=== PATIENT | female | born 1955 | race African-American/Black ===

== ENCOUNTER 2020-03-04 15:06 | Emergency (ER) | payer SELFPAY ==
[2020-03-04] MEDS ORDERED: Sodium Chloride 0.9% 10 ML Syringe FLUSH PRN (15:39)
[2020-03-04] MEDS ORDERED: Sodium Chloride 0.9% 1,000 ML IV SCH (15:45)
--- NOTE | 2020-03-04 17:31 | EDM.PDOC ---
ED HPI GENERAL MEDICAL PROBLEM - General Chief Complaint: General Stated Complaint: WEAK/CHILLS Time Seen by Provider: 03/04/20 15:23 Source of Information: Reports: Patient, Family History Limitations: Reports: Language Barrier - History of Present Illness INITIAL COMMENTS - FREE TEXT/NARRATIVE: The patient presents with her son who is interpreting for her. She presents with chills, generalized weakness, and achiness. This has been going on for about 4 days. She denies a fever or cough. She has no abdominal pain, nausea or vomiting. She has no dysuria. She has been careful staying away from people. She has a history of hepatitis B and she is worried this may be related to that. She does have a headache. She has no chest pain or shortness of breath. Onset: Gradual Duration: Day(s): (4) Location: Reports: Generalized Quality: Reports: Ache Severity: Mild Improves with: Reports: None Worsens with: Reports: None Associated Symptoms: Reports: Fever/Chills, Headaches. Denies: Chest Pain, Cough, Nausea/Vomiting, Shortness of Breath Headache Pain Score (Numeric/FACES): 8 - Related Data Allergies Allergy/AdvReac Type Severity Reaction Status Date / Time No Known Allergies Allergy Verified 03/04/20 15:19 Home Meds: Home Meds . 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: Musculoskeletal History: Reports: None Neurological History: Reports: None Psychiatric History: Reports: None Endocrine/Metabolic History: Reports: None Hematologic History: Reports: None Immunologic History: Reports: None Oncologic (Cancer) History: Reports: None Dermatologic History: Reports: None - Infectious Disease History Infectious Disease History: Reports: Hepatitis B - Past Surgical History Head Surgeries/Procedures: Reports: None GI Surgical History: Reports: None Female Surgical History: Reports: None Social & Family History - Family History Family Medical History: Unobtainable - Tobacco Use Tobacco Use Status *Q: Never Tobacco User - Caffeine Use Caffeine Use: Reports: None - Recreational Drug Use Recreational Drug Use: No ED ROS GENERAL - Review of Systems Review Of Systems: See Below Constitutional: Reports: Chills, Malaise, Weakness, Fatigue. Denies: Fever HEENT: Reports: No Symptoms Respiratory: Reports: No Symptoms Cardiovascular: Reports: No Symptoms Endocrine: Reports: No Symptoms GI/Abdominal: Reports: No Symptoms : Reports: No Symptoms Musculoskeletal: Reports: Muscle Pain ED EXAM, GENERAL - Physical Exam Exam: See Below Exam Limited By: No Limitations General Appearance: Alert, No Apparent Distress Ears: Normal External Exam Nose: Normal Inspection Head: Atraumatic, Normocephalic Neck: Normal Inspection Respiratory/Chest: No Respiratory Distress, Lungs Clear, Normal Breath Sounds Cardiovascular: Regular Rate, Rhythm, No Edema, No Murmur GI/Abdominal: Soft, Non-Tender, No Organomegaly, No Mass Back Exam: Normal Inspection Extremities: Normal Inspection Neurological: Alert, Oriented, No Motor/Sensory Deficits Course - Vital Signs Last Recorded V/S: Last Vital Signs Temp 97.6 F 03/04/20 15:29 Pulse 64 03/04/20 15:29 Resp 18 03/04/20 15:29 BP 167/90 H 03/04/20 15:29 Pulse Ox 100 03/04/20 15:29 - Orders/Labs/Meds Orders: Active Orders 24 hr Category Date Time Status Cardiac Monitoring [RC] . DIRECTED Care 03/04/20 15:39 Active Peripheral IV Care [RC] . DIRECTED Care 03/04/20 15:40 Active Chest 1V Frontal [CR] Stat Exams 03/04/20 15:40 Taken CORONAVIRUS COVID-19 PCR PHL Stat Lab 03/04/20 16:00 Received Sodium Chloride 0.9% [Normal Saline] 1,000 ml Med 03/04/20 15:45 Active IV .BOLUS Sodium Chloride 0.9% [Saline Flush] Med 03/04/20 15:39 Active 10 ml FLUSH ASDIRECTED PRN Peripheral IV Insertion Adult [OM.PC] Stat Oth 03/04/20 15:39 Ordered Medication Orders Sodium Chloride (Normal Saline) 1,000 mls @ 1,000 mls/hr IV .BOLUS AMINTA Last Admin: 03/04/20 16:01 Dose: 1,000 mls/hr Documented by: TIERA Sodium Chloride (Saline Flush) 10 ml FLUSH ASDIRECTED PRN PRN Reason: Keep Vein Open Last Admin: 03/04/20 16:02 Dose: 10 ml Documented by: [email or web address] Labs: Laboratory Tests 03/04/20 03/04/20 03/04/20 Range/Units 16:00 16:00 16:45 WBC 4.17 (3.98-10.04) K/mm3 RBC 4.43 (3.98-5.22) M/mm3 Hgb 14.0 (11.2-15.7) gm/dl Hct 42.0 (34.1-44.9) % MCV 94.8 (79.4-94.8) fl MCH 31.6 (25.6-32.2) pg MCHC 33.3 (32.2-35.5) g/dl RDW Std Deviation 43.1 (36.4-46.3) fL Plt Count 148 L (182-369) K/mm3 MPV 11.9 (9.4-12.3) fl Neut % (Auto) 42.8 (34.0-71.1) % Lymph % (Auto) 46.5 (19.3-51.7) % [place] % (Auto) 10.3 (4.7-12.5) % Eos % (Auto) 0.2 L (0.7-5.8) Baso % (Auto) 0.2 (0.1-1.2) % Neut # (Auto) 1.78 (1.56-6.13) K/mm3 Lymph # (Auto) 1.94 (1.18-3.74) K/mm3 [place] # (Auto) 0.43 H (0.24-0.36) K/mm3 Eos # (Auto) 0.01 L (0.04-0.36) K/mm3 Baso # (Auto) 0.01 (0.01-0.08) K/mm3 Sodium 140 (136-145) mEq/L Potassium 4.0 (3.5-5.1) mEq/L Chloride 101 (98-107) mEq/L Carbon Dioxide 29 (21-32) mEq/L Anion Gap 14.0 (5-15) BUN 9 (7-18) mg/dL Creatinine 0.9 (0.55-1.02) mg/dL Est Cr Clr Drug Dosing 56.82 mL/min Estimated GFR (MDRD) > 60 (>60) mL/min BUN/Creatinine Ratio 10.0 L (14-18) Glucose 94 (80-115) mg/dL Calcium 9.4 (8.5-10.1) mg/dL Total Bilirubin 0.4 (0.2-1.0) mg/dL AST 26 (15-37) U/L ALT 35 (14-59) U/L Alkaline Phosphatase 65 (46-116) U/L C-Reactive Protein 0.3 (<1.0) mg/dL Total Protein 8.4 H (6.4-8.2) g/dl Albumin 3.8 (3.4-5.0) g/dl Globulin 4.6 gm/dL Albumin/Globulin Ratio 0.8 L (1-2) Lipase 158 (73-393) U/L Urine Color Light yellow (Yellow) Urine Appearance Clear (Clear) Urine pH 6.0 (5.0-8.0) Ur Specific [place] 1.010 (1.005-1.030) Urine Protein Negative (Negative) Urine Glucose (UA) Negative (Negative) Urine Ketones Negative (Negative) Urine Occult Blood Trace-intact H (Negative) Urine Nitrite Negative (Negative) Urine Bilirubin Negative (Negative) Urine Urobilinogen 0.2 (0.2-1.0) Ur Leukocyte Esterase Negative (Negative) Urine RBC 0-5 (0-5) /hpf Urine WBC 0-5 (0-5) /hpf Ur Squamous Epith Cells 0-5 (0-5) /hpf Urine Bacteria Few (FEW) /hpf Urine Mucus Not seen (FEW) /hpf Meds: Medications Generic Name Dose Route Start Last Admin Trade Name Freq PRN Reason Stop Dose Admin Sodium Chloride 1,000 mls @ 1,000 mls/hr 03/04/20 15:45 03/04/20 16:01 Normal Saline IV 1,000 mls/hr .BOLUS AMINTA Administration Sodium Chloride 10 ml 03/04/20 15:39 03/04/20 16:02 Saline Flush FLUSH 10 ml ASDIRECTED PRN Administration Keep Vein Open - Re-Assessments/Exams Free Text/Narrative Re-Assessment/Exam: 03/04/20 17:30 I ordered an IV NS 1L bolus, labs, CXR, UA and COVID 19 test. Her CXR shows nothing acute. Her CBC and CMP look good. Her UA shows no UTI. I will discharge her home and have her follow up with your clinic provider. Departure - Departure Time of Disposition: 17:35 Disposition: Home, Self-Care 01 Condition: Good Clinical Impression: Viral syndrome - Discharge Information *PRESCRIPTION DRUG MONITORING PROGRAM REVIEWED*: Not Applicable *COPY OF PRESCRIPTION DRUG MONITORING REPORT IN PATIENT ANDRES: Not Applicable Referrals: PCP,None [Primary Care Provider] - Yovani Washington WELDING MACHINE SETTER [Nurse Practitioner] - 1 Week Additional Instructions: Drink plenty of fluids. Take motrin or aleve for any fever or pain. We will call you with results. Please return if you are worse. Sepsis Event Note (ED) - Evaluation Sepsis Screening Result: No Definite Risk - Focused Exam Vital Signs: Vital Signs Temp Pulse Resp BP Pulse Ox 03/04/20 15:29 97.6 F 64 18 167/90 H 100 - My Orders Last 24 Hours: My Active Orders 03/04/20 15:39 Cardiac Monitoring [RC] . DIRECTED Sodium Chloride 0.9% [Saline Flush] 10 ml FLUSH ASDIRECTED PRN Peripheral IV Insertion Adult [OM.PC] Stat 03/04/20 15:40 Peripheral IV Care [RC] . DIRECTED Chest 1V Frontal [CR] Stat 03/04/20 15:45 Sodium Chloride 0.9% [Normal Saline] 1,000 ml IV .BOLUS 03/04/20 16:00 CORONAVIRUS COVID-19 PCR PHL Stat - Assessment/Plan Last 24 Hours: My Active Orders 03/04/20 15:39 Cardiac Monitoring [RC] . DIRECTED Sodium Chloride 0.9% [Saline Flush] 10 ml FLUSH ASDIRECTED PRN Peripheral IV Insertion Adult [OM.PC] Stat 03/04/20 15:40 Peripheral IV Care [RC] . DIRECTED Chest 1V Frontal [CR] Stat 03/04/20 15:45 Sodium Chloride 0.9% [Normal Saline] 1,000 ml IV .BOLUS 03/04/20 16:00 CORONAVIRUS COVID-19 PCR PHL Stat
--- NOTE | 2020-03-07 14:12 | CR ---
PROCEDURE INFORMATION: Exam: XR Chest, 1 View Exam date and time: 03/04/2020 3:34 PM Age: 64 years old Clinical indication: Chest pain TECHNIQUE: Imaging protocol: XR of the chest Views: 1 view. COMPARISON: No relevant prior studies available. FINDINGS: Lungs: The lungs are symmetric, well expanded and clear. Pleural space: There are no pleural effusions. There is no pneumothorax. Heart/Mediastinum: The cardiac silhouette is mildly enlarged. The mediastinal and hilar contours are normal. The pulmonary vessels are normal. Bones/joints: No acute osseous pathology is identified. IMPRESSION: Mild cardiomegaly. No acute CHF or pneumonia identified. Thank you for allowing us to participate in the care of your patient. Dictated and Authenticated by: Isadora Sneed MD 03/04/2020 5:18 PM Central Time ([place] & [place]) [facility]
== END 2020-03-04 17:40 | disposition home or self-care (01) ==
LOC: JD.ED 15:06
DX: B34.9 Viral infection, unspecified (principal)
CPT/HCPCS: 36415; 71045; 80053; 81001; 83690; 85025; 86140; 99283; J7030

== ENCOUNTER 2020-03-06 04:38 | Emergency (ER) | payer SELFPAY ==
[2020-03-06] MEDS ORDERED: Sodium Chloride 0.9% 10 ML Syringe FLUSH PRN (05:15)
[2020-03-06] MEDS ORDERED: Sodium Chloride 0.9% 1,000 ML IV SCH (05:15)
--- NOTE | 2020-03-06 05:49 | EDM.PDOC ---
ED HPI GENERAL MEDICAL PROBLEM - General Chief Complaint: Gastrointestinal Problem Stated Complaint: DIZZY/HEART RACING/DIARRHEA Time Seen by Provider: 03/06/20 05:02 Source of Information: Reports: Patient, RN Notes Reviewed - History of Present Illness INITIAL COMMENTS - FREE TEXT/NARRATIVE: 64 yr old female with onset of diarrhea at home about an hour ago. She became lightheaded and experienced near syncope or may have passed out briefly. She now feels better. She denies current chest or abd pain. Hx of Hep B. , on no current meds for that and up until this AM not recently ill. Generalized Pain Score (Numeric/FACES): 5 - Related Data Allergies Allergy/AdvReac Type Severity Reaction Status Date / Time No Known Allergies Allergy Verified 03/06/20 05:02 Home Meds: Home Meds . 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: Musculoskeletal History: Reports: None Neurological History: Reports: None Psychiatric History: Reports: None Endocrine/Metabolic History: Reports: None Hematologic History: Reports: None Immunologic History: Reports: None Oncologic (Cancer) History: Reports: None Dermatologic History: Reports: None - Infectious Disease History Infectious Disease History: Reports: Hepatitis B - Past Surgical History Head Surgeries/Procedures: Reports: None GI Surgical History: Reports: None Female Surgical History: Reports: None Social & Family History - Family History Family Medical History: Unobtainable - Tobacco Use Tobacco Use Status *Q: Never Tobacco User - Caffeine Use Caffeine Use: Reports: None ED ROS GENERAL - Review of Systems Review Of Systems: See Below Constitutional: Denies: Fever HEENT: Reports: No Symptoms Respiratory: Denies: Shortness of Breath, Cough Cardiovascular: Denies: Chest Pain GI/Abdominal: Reports: Diarrhea. Denies: Abdominal Pain, Vomiting Musculoskeletal: Reports: No Symptoms Skin: Reports: No Symptoms Neurological: Reports: Dizziness (gone) ED EXAM, GI/ABD - Physical Exam Exam: See Below General Appearance: Alert, No Apparent Distress Respiratory/Chest: No Respiratory Distress, Lungs Clear, Normal Breath Sounds Cardiovascular: Regular Rate, Rhythm GI/Abdominal Exam: Soft, Non-Tender. No: Guarding, Rebound Neurological: Alert, No Motor/Sensory Deficits Skin Exam: Warm, Dry #1 Interpretation EKG Date: 03/06/20 Rhythm: NSR Lorenzo: Normal P-Wave: Present QRS: Normal ST-T: Elevated (very slight st elevation leads II, V3, v4.) Course - Vital Signs Last Recorded V/S: Last Vital Signs Temp 98.2 F 03/06/20 04:49 Pulse 62 03/06/20 04:49 Resp 16 03/06/20 04:49 BP 134/73 03/06/20 04:49 Pulse Ox 97 03/06/20 04:49 Orthostatic Blood Pressure [ 128/70 Standing] Orthostatic Blood Pressure [ 134/76 Supine] - Orders/Labs/Meds Orders: Active Orders 24 hr Category Date Time Status Peripheral IV Insertion Adult [OM.PC] Stat Oth 03/06/20 05:15 Ordered Labs: Laboratory Tests 03/06/20 03/06/20 Range/Units 05:30 05:30 WBC 3.71 L (3.98-10.04) K/mm3 RBC 4.00 (3.98-5.22) M/mm3 Hgb 12.8 (11.2-15.7) gm/dl Hct 37.7 (34.1-44.9) % MCV 94.3 (79.4-94.8) fl MCH 32.0 (25.6-32.2) pg MCHC 34.0 (32.2-35.5) g/dl RDW Std Deviation 42.5 (36.4-46.3) fL Plt Count 137 L (182-369) K/mm3 MPV 11.9 (9.4-12.3) fl Neut % (Auto) 47.6 (34.0-71.1) % Lymph % (Auto) 40.7 (19.3-51.7) % [place] % (Auto) 11.1 (4.7-12.5) % Eos % (Auto) 0.3 L (0.7-5.8) Baso % (Auto) 0.3 (0.1-1.2) % Neut # (Auto) 1.77 (1.56-6.13) K/mm3 Lymph # (Auto) 1.51 (1.18-3.74) K/mm3 [place] # (Auto) 0.41 H (0.24-0.36) K/mm3 Eos # (Auto) 0.01 L (0.04-0.36) K/mm3 Baso # (Auto) 0.01 (0.01-0.08) K/mm3 Sodium 140 (136-145) mEq/L Potassium 3.7 (3.5-5.1) mEq/L Chloride 103 (98-107) mEq/L Carbon Dioxide 28 (21-32) mEq/L Anion Gap 12.7 (5-15) BUN 10 (7-18) mg/dL Creatinine 1.0 (0.55-1.02) mg/dL Est Cr Clr Drug Dosing TNP Estimated GFR (MDRD) > 60 (>60) mL/min BUN/Creatinine Ratio 10.0 L (14-18) Glucose 99 (80-115) mg/dL Calcium 8.9 (8.5-10.1) mg/dL Total Bilirubin 0.4 (0.2-1.0) mg/dL AST 26 (15-37) U/L ALT 31 (14-59) U/L Alkaline Phosphatase 51 (46-116) U/L Total Protein 7.5 (6.4-8.2) g/dl Albumin 3.3 L (3.4-5.0) g/dl Globulin 4.2 gm/dL Albumin/Globulin Ratio 0.8 L (1-2) Meds: Medications Discontinued Medications Generic Name Dose Route Start Last Admin Trade Name Freq PRN Reason Stop Dose Admin Sodium Chloride 1,000 mls @ 999 mls/hr 03/06/20 05:15 03/06/20 05:22 Normal Saline IV 999 mls/hr ONETIME AMINTA Administration Sodium Chloride 10 ml 03/06/20 05:15 03/06/20 05:22 Saline Flush FLUSH 10 ml ASDIRECTED PRN Administration Keep Vein Open Departure - Departure Time of Disposition: 06:08 Disposition: Home, Self-Care 01 Condition: Fair Clinical Impression: Diarrhea Syncope Qualifiers: Encounter type: initial encounter - Discharge Information Instructions: Diarrhea, Adult, [id number] Referrals: PCP,None [Primary Care Provider] - Forms: ED Department Discharge Additional Instructions: Rest. Clear liquids until this afternoon. Probiotic available over the counter twice daily will help you get over the diarrhea more quickly. Avoid milk and dairy products today and tomorrow. Follow up clinic as needed. Return to ED as needed if symptoms worsening in any way. Sepsis Event Note (ED) - Evaluation Sepsis Screening Result: No Definite Risk - My Orders Last 24 Hours: My Active Orders 03/06/20 05:15 Peripheral IV Insertion Adult [OM.PC] Stat - Assessment/Plan Last 24 Hours: My Active Orders 03/06/20 05:15 Peripheral IV Insertion Adult [OM.PC] Stat
== END 2020-03-06 06:25 | disposition home or self-care (01) ==
LOC: JD.ED 04:38
DX: R19.7 Diarrhea, unspecified (principal); R55 Syncope and collapse
CPT/HCPCS: 36415; 80053; 85025; 93005; 99284; J7030